=== PATIENT | female | born 1985 | race Caucasian/White ===

== ENCOUNTER 2017-12-18 06:43 | Inpatient (IN) | payer OTHER ==
[~2017-12-18] VITALS: Ht 175.3 cm; Wt 100.2 kg
[2018-01-07] MEDS ORDERED: PRENATAL TABLE1 EACH PO (12:50)
[2018-01-07] MEDS ORDERED: SYNTHROID100 MCG PO (12:51)
== END 2018-01-09 12:29 | DRG 798 ==
LOC: OB/GYN 06:43 → LDR 01-07 12:10 → OB/GYN 01-07 19:39
PROVIDERS: Obstetrics & Gynecology
PROC: 0UB70ZZ Excision of Bilateral Fallopian Tubes, Open Approach (ICD-10-PCS; 2018-01-07)
PROC: 0KQM0ZZ Repair Perineum Muscle, Open Approach (ICD-10-PCS; 2018-01-07)
PROC: 4A1HXCZ Monitoring of Products of Conception, Cardiac Rate, External Approach (ICD-10-PCS; 2018-01-07)
PROC: 10E0XZZ Delivery of Products of Conception, External Approach (ICD-10-PCS; principal; 2018-01-07 17:00)
DX: O70.1 Second degree perineal laceration during delivery (principal); Z37.0 Single live birth; Z3A.39 39 weeks gestation of pregnancy; Z30.2 Encounter for sterilization